=== PATIENT | female | born 1965 | race Caucasian/White ===

== ENCOUNTER 2017-12-22 10:46 | Observation (INO) | payer BC ==
--- NOTE | 2017-12-22 11:51 | RAD ---
PORTABLE UPRIGHT FRONTAL CHEST RADIOGRAPH: Date: 12-22-17 Comparison: 11-21-16 History: Nausea, chills, and recurring pain. FINDINGS: Midline sternotomy wires and mediastinal clips are present. No pneumothorax is noted. There is a dual -lead transvenous AICD. No lobar consolidation or alveolar edema. IMPRESSION: No acute findings. POS: [facility]
[2017-12-22 11:53] LABS: #Basophils 0.1 thou/uL (0.0-0.2); #Eosinphils 0.3 thou/uL (0.0-0.7); #Lymphocytes 2.2 thou/uL (1.20-3.40); #Monocytes 0.5 thou/uL (0.11-0.59); #Neutrophils 6.3 thou/uL (1.40-6.50); %Basophils 0.9 % (0.0-1.0); %Eosinophils 3.6 % (0.0-10.0); %Monocytes 5.1 % (0.0-10.0); %Neutrophils 67.4 % (42.0-75.0); Hemoglobin 14.7 g/dL (12.0-16.0); Mean Corpuscular HGB CONC 32.8 g/dL (32.0-36.0); Mean Corpuscular Hemoglobin 30.4 pg (27.0-31.0); Mean Corpuscular Volume 92.6 fl (81.0-99.0); Mean Platelet Volume 7.8 fL (7.4-10.4); Platelet Count 289 thou/uL (130-400); Red Blood Cell (RBC) Count 4.86 mill/uL (4.20-5.40); White Blood Cell (WBC) Count 9.4 thou/uL (4.8-10.8)
[2017-12-22 12:02] LABS: ALT (SGPT) 23 U/L (8-55); AST (SGOT) 25 U/L (5-34); Albumin 4.4 g/dL (3.5-5.0); Alkaline Phosphatase 98 U/L (40-150); Anion Gap 16 mmol/L (10-20); BUN (Urea Nitrogen) 12 mg/dL (9.8-20.1); Bilirubin, Total 0.6 mg/dL (0.2-1.2); CK (CPK) 91 U/L (29-168); Calc. Creatinine Clearance 0 mL/min (70-130); Calcium 10.1 mg/dL (7.8-10.44); Carbon Dioxide 26 mmol/L (22-29); Chloride 104 mmol/L (98-107); Estimated GFR-MDRD 70; Globulin 3.3 g/dL (2.4-3.5); Glucose 181 mg/dL (70-105); Lipase 8 U/L (8-78); Potassium 4.4 mmol/L (3.5-5.1); Protein, Total 7.7 g/dL (6.0-8.3); Sodium 142 mmol/L (136-145)
[2017-12-22 12:05] LABS: CKMB 1.7 ng/mL (0-6.6); Troponin I 0.028 ng/mL (< 0.028)
[2017-12-22] MEDS ORDERED: Ondansetron HCl/PF 4 MG/2 ML Vial ONE (12:43)
[2017-12-22 13:15] LABS: Bilirubin Small (Negative); Blood, Urine Trace (Negative); Clarity Clear (Clear); Glucose, Urine (Dipstick) Negative (Negative); Leukocyte Small (Negative); Nitrite Negative (Negative); Protein, Urine (Dipstick) 30 mg/dL (Neg-Trace); Specific Gravity, Urine 1.025 (1.005-1.030); Urobilinogen 0.2 mg/dL (0.2-1.0); pH, Urine 5.5 (5.0-9.0)
[2017-12-22 13:26] LABS: RBC/HPF 0-3 HPF (0-3)
[2017-12-22 13:27] LABS: Bacteria/HPF 1+ HPF (None Seen)
[2017-12-22] MEDS ORDERED: Ondansetron ODT 4 MG TAB SL PRN (15:48)
[2017-12-22] MEDS ORDERED: Ondansetron HCl/PF 4 MG/2 ML Vial IVP PRN ×2 (15:48→16:56)
[2017-12-22 16:08] VITALS: BMI 43.4
[2017-12-22 16:45] LABS: Troponin I 0.015 ng/mL (< 0.028)
[2017-12-22] MEDS ORDERED: Dextrose 50% Abboject 50 ML SYRINGE SLOW IVP PRN (16:56)
[2017-12-22] MEDS ORDERED: Acetaminophen 325 MG TAB PO PRN (16:56)
[2017-12-22] MEDS ORDERED: Nitroglycerin 0.4 MG TAB (25 Tab Bottle) PO PRN (16:56)
[2017-12-22] MEDS ORDERED: Dextrose 5% in Water 1,000 ML IV PRN (16:56)
[2017-12-22] MEDS ORDERED: Acetaminophen/Codeine 30-300mg Tablet PO PRN (16:56)
[2017-12-22] MEDS ORDERED: Lorazepam 0.5 MG TAB PO PRN (16:56)
[2017-12-22] MEDS ORDERED: Mag-Al 1200 mg/1200 mg/30 ML UDCUP PO PRN (16:56)
[2017-12-22] MEDS ORDERED: HumaLOG 300 UNITS/3 ML VIAL SC PRN ×2 (16:56)
[2017-12-22] MEDS ORDERED: Ondansetron ODT 4 MG TAB PO PRN (16:56)
[2017-12-22] MEDS ORDERED: Promethazine 25 MG TAB PO PRN (19:01)
[2017-12-22 19:37] LABS: Troponin I 0.014 ng/mL (< 0.028)
[2017-12-22] MEDS: Famotidine 20 MG TAB PO SCH (20:53)
[2017-12-22] MEDS: Carvedilol 25 MG TAB PO SCH (20:53)
--- NOTE | 2017-12-22 20:56 | HP ---
PRIMARY CARE PHYSICIAN: Dr. Eller. NAIL MACHINE OPERATOR: Dr. Rosas. CHIEF COMPLAINT: Chest pain and nausea, vomiting, and diarrhea. HISTORY OF PRESENT ILLNESS: Ms. Caicedo is a very pleasant 52-year-old female. She has a history of coronary artery disease and she has had coronary artery bypass grafting back in 2002. She says unfor tunately the bypass vessels had failed, but she did not have a redo surgery. Since then she has been having angina off and on for years, this has been treated with maximal medical management with beta blockers, aspirin, nitrates and Ranexa. She also has chronic systolic heart failure with her last ej ection fraction known as being approximately 20%. She says this was a few years ago and she has been treated with Entresto for this. She says that she was in her usual state of health until this morni ng. She says that she was in bed. She had just woke up and before she had gotten out of bed, she st arted having pain in the center of her chest. She says this is normally where she experiences angina . She says she cannot really describe the characteristics of it. She says it is not necessarily a s harp or dull pain, it is more like a tightening in her chest. She rates it at about 4/5. She gave h erself 1 spray of nitroglycerin and it went away. When asked why she came to the hospital, she says she was concerned because it was also in conjunction with nausea and vomiting. She says that yesterd ay, she started getting nauseated off and on and she vomited 3 times throughout the night. She also says that the Thursday prior to admission, she had another episode of the chest pain and she gave herse lf 2 sprays of the nitroglycerin instead of 1 in order for the pain to go away. She says because of all of these things in conjunction, this is why she came to the hospital for evaluation. She says th at she has not been short of breath. She has not felt dizzy or lightheaded. The pain is nonradiatin g and again it usually goes away with 1 spray of the nitroglycerin and currently, she is not having c hest pain. She has been placed in observation for further evaluation. REVIEW OF SYSTEMS: Constitutional: She has had some chills and fever, no night sweats, no weight lo ss. HEENT: She has had a headache that she attributes this to nitroglycerin. No sore throat, rhino rrhea, neck pain or adenopathy. Pulmonary: She says she has occasional cough that she believes this is due to fluid, no hemoptysis. Cardiovascular: As the history of present illness. She also denie s any PND, no orthopnea. No lower extremity edema, no palpitations. Gastrointestinal: She has had some nausea and vomiting, no hematemesis. She has also had diarrhea, no mention of any blood in the stools. Genitourinary: No urinary frequency, hematuria or hesitancy. Musculoskeletal: No muscle p ains, weakness or joint pains. Neurologic: No focal weakness, numbness, no seizures. Psychiatric: No symptoms of anxiety or depression. PAST MEDICAL HISTORY: Significant for coronary artery disease, diabetes mellitus, and hyperlipidemia . She says that she is not hypertensive. PAST SURGICAL HISTORY: She has had the bypass surgery in 2002, failed graft. She has had an AICD pl aced, hysterectomy, cholecystectomy, and meniscal tear surgery. ALLERGIES: LATEX. She says she is intolerant to MORPHINE, AND DEMEROL which makes her sick. FAMILY HISTORY: Significant for diabetes mellitus in both parents as well as coronary artery disease in both parents. SOCIAL HISTORY: She is a nonsmoker, nondrinker. She is . She has two children. She has not designated as the surrogate decision maker, but of course her would do that. She would like to be a full code. CURRENT MEDICATIONS: Include carvedilol 25 mg twice a day, Entresto 49/51 twice a day, glipizide 2.5 mg daily, Plavix 75 mg daily, Zetia 10 mg q.p.m., Ranexa 1000 mg q.p.m., Crestor 40 mg q.p.m., venla faxine 150 mg daily, Nitrostat p.r.n., Zofran 8 mg t.i.d., aspirin 325 mg daily, Prilosec 20 mg daily , and Tylenol #3 one to two tablets as needed for pain. PHYSICAL EXAMINATION: GENERAL: She is well-developed, well-nourished. She appears to be in no acute distress. VITAL SIGNS: Blood pressure was 115/57, heart rate 87, respiratory rate of 15, temperature is 99.1, O2 sat was 92% on room air. HEENT: Pupils are equal, round, and reactive. NECK: There is no adenopathy, no bruits. LUNGS: Clear to auscultation with no wheezing, no rales. CARDIOVASCULAR: Heart sounds are a bit distant. She had a normal S1, S2. I did not appreciate an S 3 or S4. No murmurs, clicks or rubs. ABDOMEN: Obese, it is soft, nontender, nondistended. Positive for bowel sounds. No rebound, no gua rding. EXTREMITIES: There is no edema. SKIN: No skin lesions, no rash. NEUROLOGIC: The exam is nonfocal. LABORATORY AND X-RAY FINDINGS: Her EKG was sinus rhythm, the rate was in the 70s. She had some T-wa ve inversions in lead I and aVL with also she had some baseline artifact. Her white blood cell count was 9.4, hemoglobin 14.7, hematocrit is 45, platelet count is 289. Sodium 142, potassium 4.4, chlor angelica 104, CO2 is 26, BUN 12, creatinine 0.86, glucose is 181. Urinalysis, she has got trace blood, ni trite negative, 4-6 wbc's, but she had 11-20 squamous cells, 1+ bacteria. ASSESSMENT AND PLAN: This is a pleasant 52-year-old female that presented to the emergency room with complaints of chest pain which is similar to the pain that she has had that she relates to angina. However, the frequency of her chest pain has not significantly changed, nor the severity. Her main c oncern was that there was some nausea and diarrhea associated with it and this was what had concerned her. Her initial troponin was negative. There were no acute EKG changes. I suspect that she has s table angina likely in association with a viral gastroenteritis. She will be placed in observation g iven her complex cardiac history, we will go ahead and consult Dr. Rosas to see if he feels any ryan tional cardiac workup is necessary. She has not had a recent echo that she is aware of. Therefore, we will go ahead and order an echocardiogram to assess her ejection fraction. Continue to trend her troponins and restart her home medications. For diabetes, again restart her home medications for diabetes as well as place her on a sliding scale . She does not appear to be vomiting at this time or having any diarrhea. Therefore, we will hold o ff on any IV fluids, especially given her heart failure and just treat her symptomatically as needed.
[2017-12-22] MEDS ORDERED: Clopidogrel Bisulfate 75 MG TAB PO SCH (21:00)
[2017-12-22] MEDS ORDERED: Rosuvastatin 20 MG TAB PO SCH (21:00)
[2017-12-22] MEDS ORDERED: Venlafaxine HCl XR 150 MG CAP PO SCH (21:00)
[2017-12-22] MEDS ORDERED: Ezetimibe 10 MG TAB PO SCH (21:00)
[2017-12-22] MEDS: Sacubitril 49 MG/Valsartan 51 MG TABLET PO SCH (21:58)
[2017-12-23 05:47] LABS: #Basophils 0.1 thou/uL (0.0-0.2); #Eosinphils 0.3 thou/uL (0.0-0.7); #Lymphocytes 2.5 thou/uL (1.20-3.40); #Monocytes 0.6 thou/uL (0.11-0.59); #Neutrophils 4.2 thou/uL (1.40-6.50); %Basophils 0.7 % (0.0-1.0); %Eosinophils 4.1 % (0.0-10.0); %Lymphocytes 32.1 % (21.0-51.0); %Monocytes 7.8 % (0.0-10.0); %Neutrophils 55.3 % (42.0-75.0); Hemoglobin 13.5 g/dL (12.0-16.0); Mean Corpuscular HGB CONC 32.9 g/dL (32.0-36.0); Mean Corpuscular Hemoglobin 31.8 pg (27.0-31.0); Mean Corpuscular Volume 96.5 fl (81.0-99.0); Platelet Count 242 thou/uL (130-400); RBC Distribution Width 13.2 % (11.5-14.5); Red Blood Cell (RBC) Count 4.25 mill/uL (4.20-5.40); White Blood Cell (WBC) Count 7.6 thou/uL (4.8-10.8)
[2017-12-23 06:01] LABS: Anion Gap 11 mmol/L (10-20); BUN (Urea Nitrogen) 12 mg/dL (9.8-20.1); Calc. Creatinine Clearance 131 mL/min (70-130); Calcium 9.4 mg/dL (7.8-10.44); Carbon Dioxide 28 mmol/L (22-29); Cardiac Risk 4.1 (Less than 4.5); Chloride 104 mmol/L (98-107); Cholesterol 145 mg/dl (< 200 Desired); Estimated GFR-MDRD 71; Glucose 161 mg/dL (70-105); HDL Cholesterol 35 mg/dL (>60 Neg Risk); LDL Cholesterol, Calculated 62 mg/dL; Potassium 3.8 mmol/L (3.5-5.1); Sodium 139 mmol/L (136-145); Triglycerides 242 mg/dL (Less than 150)
[2017-12-23] MEDS ORDERED: Enoxaparin Sodium 40 MG/0.4 ML SYRINGE SC SCH (09:00)
[2017-12-23] MEDS ORDERED: Aspirin 325 mg Enteric Coated Tablet PO SCH (09:00)
[2017-12-23] MEDS: Sacubitril 49 MG/Valsartan 51 MG TABLET PO SCH (09:57)
[2017-12-23] MEDS: Famotidine 20 MG TAB PO SCH (09:58)
[2017-12-23] MEDS: Carvedilol 25 MG TAB PO SCH (09:58)
--- NOTE | 2017-12-23 12:05 | PDOC.PN ---
- Subjective Encounter Start Date: 12/23/17 Encounter Start Time: 12:04 Ms. Caicedo was seen today in follow-up. She is feeling better. She says the nausea has improved, and she has not had any vomiting. She does not have diarrhea either and only loose stools. - Objective Resuscitation Status: Resuscitation Status FULL:Full Resuscitation MAR Reviewed: Yes Vital Signs & Weight: Vital Signs (12 hours) Temp Pulse Resp BP BP Pulse Ox 12/23/17 08:22 97.7 F 87 16 116/60 93 L 12/23/17 04:30 98.4 F 73 16 99/50 L 95 12/23/17 00:17 86 16 99/55 L 94 L Weight Weight 231 lb 1.6 oz I&O: 12/22/17 12/23/17 12/24/17 06:59 06:59 06:59 Intake Total 720 Balance 720 Result Diagrams: 12/23/17 05:10 12/23/17 05:10 Additional Labs: Accuchecks 12/23/17 12/22/17 11:33 22:35 POC Glucose 215 H 191 H Phys Exam - Physical Examination HEENT: PERRLA Respiratory: no wheezing, no rales, no rhonchi Cardiovascular: RRR, no significant murmur, no rub Gastrointestinal: soft, non-tender, positive bowel sounds Musculoskeletal: no edema Dx/Plan (1) Gastroenteritis and colitis, viral Code(s): A08.4 - VIRAL INTESTINAL INFECTION, UNSPECIFIED Status: Acute (2) CAD (coronary artery disease) Code(s): I25.10 - ATHSCL HEART DISEASE OF [place] CORONARY ARTERY W/O ANG PCTRS Status: Acute (3) Diabetes Code(s): E11.9 - TYPE 2 DIABETES MELLITUS WITHOUT COMPLICATIONS Status: Acute (4) HTN (hypertension) Code(s): I10 - ESSENTIAL (PRIMARY) HYPERTENSION Status: Acute - Plan * Gastroenteritis- resolving * CAD- she has stable angina * Chronic systolic heart failure- compensated- Echo is pending- the results can be followed-up as an outpatient * Likely home this afternoon.
[2017-12-23] MEDS ORDERED: Sulfameth/Trimethoprim DS 800-160mg TAB PO SCH (12:15)
--- NOTE | 2017-12-23 12:50 | DIS ---
DATE OF ADMISSION: 12/22/2017 DATE OF DISCHARGE: 12/23/2017 PRIMARY CARE PHYSICIAN: Jerod Eller M.D. DISCHARGE DISPOSITION: Home. PRIMARY DISCHARGE DIAGNOSES: 1. Gastroenteritis, probable viral. 2. Stable angina. 3. Coronary artery disease. 4. Chronic systolic heart failure with her last ejection fraction being 20%-25%. 5. History of automated implantable cardioverter-defibrillator placement. 6. Diabetes mellitus. 7. Hyperlipidemia. DISCHARGE MEDICATIONS: These are the same as that on admission and include venlafaxine 150 mg daily, Entresto 1 tablet twice a day and that is 49/51, Crestor 40 mg daily, Ranexa 1000 mg daily, Zofran 8 mg t.i.d. as needed, omeprazole 20 mg daily, nitroglycerin spray every 5 minutes as needed, glipizid e extended release 2.5 mg daily, Zetia 10 mg daily, Plavix 75 mg daily, Carvedilol 25 mg twice a day, aspirin 325 mg daily, and Tylenol #3 as needed. PROCEDURES DONE DURING ADMISSION: The patient had an echocardiogram, which was pending at the time o f discharge. CODE STATUS: FULL CODE. ALLERGIES: LATEX, ADHESIVEs and MEPERIDINE. HOSPITAL COURSE: Ms. Caicedo is a very pleasant 52-year-old female who presented to the ER with compl aints of chest pain along with nausea, vomiting, and diarrhea. Given her complicated cardiac history , she was concerned that she could have an acute coronary syndrome. She was placed in observation. Cardiac enzymes were obtained, which were essentially negative and her symptoms of nausea, vomiting, and diarrhea actually abated by the following day. She was able to tolerate a solid diet and likely will be discharged home later on this afternoon. She can follow up with echocardiogram results with Dr. Rosas as had planned to get an outpatient echo in the coming weeks and also follow up with her [facility] physician in 1-2 weeks as well.
--- NOTE | 2017-12-23 15:39 | CON ---
DATE OF CONSULTATION: 12/23/2017 REASON FOR CONSULTATION: Chest pain. HISTORY OF PRESENT ILLNESS: Ms. Caicedo is a very pleasant 52-year-old woman with a history of extensive coronary disease as will be outlined below, who had episodes of chest pain prompting this admission. Ms. Caicedo has a long history of heart disease. She had a myocardial infarction in 2001. She underwent emergency balloon angioplasty and stent implantation and she had restenosis and ultimately underwent 3-vessel bypass and subsequently underwent stent implantations. The most recent catheterization revealed that the circumflex and right coronary are occluded as are the grafts in these distributions, but the internal mammary is patent and supplies the entire heart. She did have nausea and vomiting recently. REVIEW OF SYSTEMS: Constitutional: No significant weight gain or loss. Vision : No changes. Hearing: No changes. Pulmonary: No cough or wheezing. Gastrointestinal: No nausea, vomiting, diarrhea. Skin: No rashes. Neurologic : No unilateral weakness or numbness. Psychiatric: No unusual depression or anxiety. PAST SURGICAL HISTORY: Previous defibrillator. MEDICATIONS: 1. Carvedilol. 2. Entresto. 3. Plavix. 4. Aspirin. 5. Zetia. 6. Ranexa. 7. Crestor. 8. Repatha. PHYSICAL EXAMINATION: GENERAL: This is a pleasant 52-year-old woman. VITAL SIGNS: 5 feet 1 inches tall, 231 pounds. HEENT: Eyes: Sclerae nonicteric. Mouth: Mucous membranes moist. NECK: Supple, no lymphadenopathy. LUNGS: Clear, no wheezing, rales, or rhonchi. CARDIAC: Normal S1, normal S2. There is no murmur, rub, or gallop. ABDOMEN: Soft, nontender, no hepatosplenomegaly. EXTREMITIES: Warm, dry, no clubbing or cyanosis. There is no edema. LABORATORY AND X-RAY FINDINGS: Cardiac enzymes are negative. Cholesterol 145, LDL 62. Echocardiogram, ejection fraction 20%-25% as before. ASSESSMENT: 1. Episodes of angina. 2. Nausea and vomiting, resolved. 3. Low-grade fever, resolved. PLAN: We will have AICD interrogated. If that is normal, really nothing further from a cardiac standpoint. ADDENDUM OPTIVOL MILDLY ELEVATED, IV FUROSEMIDE GIVEN X 1 MTDD
[2017-12-23] MEDS ORDERED: Potassium Chloride 20 MEQ TAB PO SCH (15:45)
[2017-12-23] MEDS ORDERED: Furosemide 20 MG/2 ML VIAL SLOW IVP SCH (15:45)
[2017-12-23 15:57] VITALS: BP 119/55; TEMP 98.4
== END 2017-12-23 19:36 | disposition home or self-care (01) ==
LOC: SCSER 10:46 → 2SW 12:55
PROVIDERS: ADMIT Internal Medicine; ATTEND Internal Medicine
DX: K52.9 Noninfective gastroenteritis and colitis, unspecified (principal); I25.118 Atherosclerotic heart disease of native coronary artery with other forms of angina pectoris; E78.5 Hyperlipidemia, unspecified; I50.22 Chronic systolic (congestive) heart failure; I25.2 Old myocardial infarction; E11.9 Type 2 diabetes mellitus without complications; Z91.040 Latex allergy status; Z91.048 Other nonmedicinal substance allergy status; Z88.5 Allergy status to narcotic agent; Z88.8 Allergy status to other drugs, medicaments and biological substances; Z79.899 Other long term (current) drug therapy; Z95.1 Presence of aortocoronary bypass graft; Z95.810 Presence of automatic (implantable) cardiac defibrillator; Z90.710 Acquired absence of both cervix and uterus; Z90.49 Acquired absence of other specified parts of digestive tract; Z98.890 Other specified postprocedural states
CPT/HCPCS: 36415; 36416; 71045; 80048; 80053; 80061; 81003; 81015; 82553; 83690; 84484; 85025; 93005; 93306; 96372; 96374; 96375; 96376; G0378; J1650; J1940; J2405

== ENCOUNTER 2018-02-23 16:52 | Observation (INO) | payer BC ==
[2018-02-23 17:44] LABS: Band 2 % (5-11); Eosinophils 4 % (0-10); Lymphocytes 29 % (21-51); MDiff Complete? YES; Mean Corpuscular HGB CONC 32.5 g/dL (32.0-36.0); Mean Corpuscular Hemoglobin 29.6 pg (27.0-31.0); Mean Corpuscular Volume 91.2 fl (81.0-99.0); Mean Platelet Volume 9.9 fL (7.4-10.4); Monocytes 6 % (0-10); Neutrophil 59 % (42-75); PLT Morphology Comment Appears Adequate; Platelet Count 277 thou/uL (130-400); RBC Distribution Width 13.4 % (11.5-14.5); Red Blood Cell (RBC) Count 4.74 mill/uL (4.20-5.40); White Blood Cell (WBC) Count 9.3 thou/uL (4.8-10.8)
[2018-02-23 17:54] LABS: ALT (SGPT) 16 U/L (8-55); AST (SGOT) 15 U/L (5-34); Albumin 3.9 g/dL (3.5-5.0); Alkaline Phosphatase 120 U/L (40-150); Anion Gap 14 mmol/L (10-20); BUN (Urea Nitrogen) 13 mg/dL (9.8-20.1); Bilirubin, Total 0.5 mg/dL (0.2-1.2); CK (CPK) 66 U/L (29-168); Calc. Creatinine Clearance 0 mL/min (70-130); Carbon Dioxide 21 mmol/L (22-29); Chloride 105 mmol/L (98-107); Estimated GFR-MDRD 62; Globulin 2.8 g/dL (2.4-3.5); Glucose 264 mg/dL (70-105); Potassium 3.9 mmol/L (3.5-5.1); Protein, Total 6.7 g/dL (6.0-8.3); Sodium 136 mmol/L (136-145)
[2018-02-23 17:55] LABS: Troponin I Less than 0.010 ng/mL (< 0.028)
[2018-02-23] MEDS ORDERED: Ondansetron HCl/PF 4 MG/2 ML Vial ONE (18:02)
[2018-02-23] MEDS ORDERED: Morphine 10 MG/ML VIAL ONE (18:02)
--- NOTE | 2018-02-23 18:06 | RAD ---
UPRIGHT PORTABLE CHEST ONE VIEW: 02/23/18 HISTORY: 53-year-old female with history of chest pain with pain radiating into her left axilla. COMPARISON: 12/22/17. Borderline cardiomegaly with postop midline sternotomy and left ICD. Stable mild vascular congestion. No confluent pneumonia, overt edema or pleural effusion. IMPRESSION: Stable chest with some borderline vascular congestion. No pneumonia or other new process. POS: [facility]
[2018-02-23 20:00] VITALS: BMI 42.7
[2018-02-23] MEDS ORDERED: Morphine 2 MG/ML SYRINGE SLOW IVP PRN (20:22)
[2018-02-23] MEDS ORDERED: Acetaminophen 325 MG TAB PO PRN ×2 (20:23→21:32)
[2018-02-23] MEDS ORDERED: Ondansetron ODT 4 MG TAB SL PRN (20:23)
[2018-02-23] MEDS ORDERED: Ondansetron HCl/PF 4 MG/2 ML Vial IVP PRN ×2 (20:23→21:32)
[2018-02-23 21:22] LABS: Troponin I Less than 0.010 ng/mL (< 0.028)
[2018-02-23] MEDS ORDERED: HumaLOG 300 UNITS/3 ML VIAL SC PRN (21:32)
[2018-02-23] MEDS ORDERED: Nitroglycerin 4.9 GM Bottle SL PRN (21:32)
[2018-02-23] MEDS ORDERED: Dextrose 5% in Water 1,000 ML IV PRN (21:32)
[2018-02-23] MEDS ORDERED: Dextrose 50% Abboject 50 ML SYRINGE SLOW IVP PRN (21:32)
[2018-02-23] MEDS ORDERED: HYDROcodone/Acetaminophen 5/325 mg Tablet PO PRN (21:32)
[2018-02-23] MEDS ORDERED: Ondansetron ODT 4 MG TAB PO PRN (21:32)
[2018-02-23] MEDS ORDERED: Enoxaparin Sodium 40 MG/0.4 ML SYRINGE SC SCH (21:45)
[2018-02-23] MEDS ORDERED: Venlafaxine HCl XR 150 MG CAP PO SCH (22:00)
[2018-02-23] MEDS ORDERED: Ezetimibe 10 MG TAB PO SCH (22:00)
[2018-02-23] MEDS ORDERED: Rosuvastatin 20 MG TAB PO SCH (22:00)
[2018-02-23] MEDS ORDERED: Clopidogrel Bisulfate 75 MG TAB PO SCH (22:00)
[2018-02-23] MEDS ORDERED: Sacubitril 49 MG/Valsartan 51 MG TABLET PO SCH (22:00)
[2018-02-23] MEDS ORDERED: Carvedilol 25 MG TAB PO SCH (22:15)
[2018-02-23 23:59] LABS: Troponin I 0.018 ng/mL (< 0.028)
[2018-02-24 06:13] LABS: #Basophils 0.1 thou/uL (0.0-0.2); #Eosinphils 0.2 thou/uL (0.0-0.7); #Lymphocytes 2.6 thou/uL (1.20-3.40); #Monocytes 0.5 thou/uL (0.11-0.59); #Neutrophils 4.2 thou/uL (1.40-6.50); %Basophils 1.3 % (0.0-1.0); %Eosinophils 2.8 % (0.0-10.0); %Lymphocytes 34.5 % (21.0-51.0); %Neutrophils 54.4 % (42.0-75.0); Hemoglobin 13.5 g/dL (12.0-16.0); Mean Corpuscular HGB CONC 34.1 g/dL (32.0-36.0); Mean Corpuscular Hemoglobin 31.2 pg (27.0-31.0); Mean Corpuscular Volume 91.6 fl (81.0-99.0); Mean Platelet Volume 7.9 fL (7.4-10.4); Platelet Count 234 thou/uL (130-400); RBC Distribution Width 12.9 % (11.5-14.5); White Blood Cell (WBC) Count 7.6 thou/uL (4.8-10.8)
[2018-02-24 06:22] LABS: Anion Gap 14 mmol/L (10-20); BUN (Urea Nitrogen) 13 mg/dL (9.8-20.1); Calc. Creatinine Clearance 109 mL/min (70-130); Calcium 8.8 mg/dL (7.8-10.44); Carbon Dioxide 23 mmol/L (22-29); Chloride 105 mmol/L (98-107); Estimated GFR-MDRD 60; Glucose 184 mg/dL (70-105); Potassium 4.3 mmol/L (3.5-5.1); Sodium 138 mmol/L (136-145)
[2018-02-24 06:28] LABS: Troponin I Less than 0.010 ng/mL (< 0.028)
--- NOTE | 2018-02-24 08:39 | HP ---
PRIMARY CARE PHYSICIAN: Dr. Eller. PRIMARY NEUROSURGICAL NURSE: Dr. Milan Rosas. DATE OF ADMISSION: 02/23/2018 TIME OF SERVICE: 2129. CHIEF COMPLAINT: Chest pain. HISTORY OF PRESENT ILLNESS: Ms. Caicedo is a 53-year-old white female well known to us from multiple previous admissions. She has history of ischemic cardiomyopathy, horrible multivessel coronary arter y disease, status post bypass surgery in 2002 three vessels. She has had a PTCA with stents, multipl e times. Her last catheterization, I think in 2013 showed all of her grafts occluded. The only cochran nt vessel was her GASCA that is basically feeding her entire heart. She has an EF of 20%-25% with inf erior and posterior wall akinesis based on her echocardiogram just done, 2 months ago. She came to the emergency department for evaluation today after the acute onset of sharp chest pain a round 14:45 today. It normally stays there, she takes her nitroglycerin spray and it goes away. Thi s time, however, it radiated to her left axilla, which was worrisome for. She came to the emergency department for evaluation. Labs were normal. Cardiac biomarkers were negative with undetectable tro ponin and CK-MB of only 1.0. She was subsequently placed under service for observation. She has no other cardiac complaints. The pain finally went away with some morphine. She is having n o pain at present. She denies any nausea or vomiting at present, but had nausea when it first starte d. She has no diarrhea, constipation. No fevers or chills. She has had no cough or sputum producti on. PAST MEDICAL HISTORY: 1. Diabetes mellitus, type 2, non-insulin dependent. 2. Hyperlipidemia, primary hypercholesterolemia. 3. Coronary artery disease with AK in the past. 4. Ischemic cardiomyopathy. 5. Chronic systolic congestive heart failure. 6. Depression. 7. Obesity. PAST SURGICAL HISTORY: 1. PTCA with stents around 6. 2. AICD placement. 3. Cholecystectomy. 4. Hysterectomy. 5. Three-vessel CABG in 2002. HOME MEDICATIONS: 1. Repatha 140 mg subcutaneous every 2 weeks due on Thursday or Thursday this week. 2. Plavix 75 mg daily. 3. Coreg 25 mg p.o. b.i.d. 4. Aspirin 325 mg daily. 5. Omeprazole 20 mg daily. 6. Nitroglycerin spray as needed. 7. Zetia 10 mg p.o. q.p.m. 8. Glipizide ER 2.5 mg p.o. q.p.m. 9. Effexor XR 150 mg p.o. q.p.m. 10. Entresto 49/51 one tablet p.o. b.i.d. 11. Crestor 40 mg p.o. q.p.m. 12. Ranexa 1000 mg q.p.m. ALLERGIES: LATEX, ADHESIVES, and DEMEROL. FAMILY HISTORY: Negative for clotting or bleeding disorder. No immune dysfunction. SOCIAL HISTORY: Negative for habits x3. REVIEW OF SYSTEMS: A 10-point review of systems was performed and is negative for all systems except as stated as per HPI. PHYSICAL EXAMINATION: VITAL SIGNS: Temperature 98.6, pulse 77, blood pressure 120/74, respiratory rate 22, satting 93% on room air. Her current heart rate is 76. GENERAL: She is awake. She is alert. She is oriented x3. She is a well-developed, well-nourished, obese white female, appears to be in zero distress. HEENT: She is normocephalic and atraumatic. Her pupils equal, round, react to light bilaterally, mu cous members are moist. She has no visible lesions. No thrush. NECK: Supple. She had no lymphadenopathy, no JVD, no thyromegaly. She has normal carotid upstrokes . I do not appreciate bruits. CHEST: Lungs are clear to auscultation bilaterally. She had good air movement. Symmetrical chest e xcursion. No wheezes, no rales, no rhonchi. CARDIOVASCULAR: She has normal S1 and S2. She has no S3 or S4. Heart tones are slightly distant. She has no audible murmurs. ABDOMEN: Soft. It is obese, is nontender. I cannot palpate internal organs. She has no rebound, r igidity, or guarding. There is normoactive bowel sounds present in all 4 quadrants. EXTREMITIES: No cyanosis, no clubbing, no edema with 1+ dorsalis pedis and posterior tibial pulses b ilaterally. SKIN: Warm, moist, well perfused. She has no rashes or lesions. MUSCULOSKELETAL: Normal to inspection. Large joints are uninflamed. There is no palpable effusions . NEUROLOGIC: Cranial nerves II-XII are grossly intact. She has normal speech pattern, 5/5 strength, no focal deficits. LABORATORY DATA: Sodium 136, potassium 3.9, chloride 105, bicarb 21, BUN 13, creatinine 0.95, glucos e 264, and calcium 9.0. Liver function within normal limits. CBC showed white count of 9.3, hemoglo bin 14.0, hematocrit of 43.2, and platelet count is 277,000. She has 59% granulocytes, 2% bands, and 29% lymphocytes. Her CK-MB was normal at 1.0. Troponin I was undetectable less than 0.010. EKG showed paced rhythm. ASSESSMENT AND PLAN: 1. Chest pain in the patient with known severe coronary artery disease. I do not think, there is an ything that can be done, as she has really only has a left internal mammary artery to supply entire h eart based on Dr. Rosas's last note. She is on aggressive management of hyperlipidemia with Crestor , Zetia, and Repatha. At this point, we will place her on observation. She is on the Ranexa, which will continue and give a dose now and we will get serial cardiac biomarkers to rule out. We will not e Dr. Rosas of admission in the mornings, so he combines and reviewed the chart. 2. Diabetes mellitus, type 2, we will continue her glipizide ER at bedtime placed on a diabetic diet and we will get sliding-scale insulin ordered. 3. Hyperlipidemia as above. 4. Depression on Effexor. 5. Hypertension. She is on Coreg, Ranexa, Entresto. We will continue these. We will monitor blood pressure closely. 6. Gastroesophageal reflux disease on omeprazole. We will continue.
[2018-02-24] MEDS: Carvedilol 25 MG TAB PO SCH ×2 (08:56→17:27)
[2018-02-24] MEDS ORDERED: Aspirin 325 mg Enteric Coated Tablet PO SCH (09:00)
[2018-02-24] MEDS ORDERED: Sacubitril 49 MG/Valsartan 51 MG TABLET PO SCH (09:00)
[2018-02-24 15:58] VITALS: BP 93/54; TEMP 98.4
[2018-02-24] MEDS ORDERED: Carvedilol 25 MG TAB PO SCH (17:27)
[2018-02-24] MEDS ORDERED: Ezetimibe 10 MG TAB PO SCH (21:00)
[2018-02-24] MEDS ORDERED: Venlafaxine HCl XR 150 MG CAP PO SCH (21:00)
[2018-02-24] MEDS ORDERED: Rosuvastatin 20 MG TAB PO SCH (21:00)
[2018-02-24] MEDS ORDERED: Clopidogrel Bisulfate 75 MG TAB PO SCH (21:00)
--- NOTE | 2018-02-24 23:17 | CON ---
DATE OF CONSULTATION: 02/24/2018 REASON FOR CONSULTATION: Chest pain. HISTORY OF PRESENT ILLNESS: Ms. Caicedo is a 53-year-old woman. She has a long history of coronary a rtery disease. Please see previous notes. The patient has had myocardial infarction, subsequently u nderwent stent implantation emergently and later had bypass surgery. Multiple percutaneous intervent ions were done as of the most recent catheterization she has occluded zuni coronary circulation wit h a patent internal mammary artery graft with the other vein grafts are occluded. Medical therapy is the only option. The patient had an episode of chest pain yesterday which was very slow to resolve, ultimately went to the emergency room. MEDICATIONS AT HOME: 1. Carvedilol 25 mg twice a day. 2. Entresto 49/51 twice a day. 3. Aspirin. 4. Clopidogrel. 5. Ranexa. 6. Rosuvastatin. 7. Repatha. 8. Crestor. ALLERGIES: LATEX, ADHESIVES, MEPERIDINE. REVIEW OF SYSTEMS: Constitutional: No significant weight gain or loss. Vision: No changes. Heari ng: No changes. Pulmonary: No cough or wheezing. Gastrointestinal: No nausea, vomiting, diarrhea . Skin: No rashes. Neurologic: No unilateral weakness or numbness. Psychiatric: No unusual depr ession or anxiety. Hematologic: No unusual bruising. Genitourinary: No burning with urination. PHYSICAL EXAMINATION: GENERAL: The pleasant patient in no distress. VITAL SIGNS: Blood pressure is 88 systolic, pulse 76. EYES: Sclerae nonicteric. MOUTH: Mucous membranes moist. NECK: Supple, no lymphadenopathy. LUNGS: Clear, no wheezing, rales or rhonchi. ABDOMEN: Soft, nontender. EXTREMITIES: No clubbing or cyanosis. There is no edema. SKIN: Warm and dry. PSYCHIATRIC: Mood and affect normal. NEUROLOGIC: Grossly normal. LABORATORY AND X-RAY FINDINGS: Troponin levels were negative. EKG shows no acute changes. Defibril lator was interrogated. BNP was normal. No significant arrhythmias. Normal function. ASSESSMENT: 1. The episode of anginal chest pain of unknown etiology, possibly related to? low blood pressure. 2. Congestive heart failure, stable. 3. Coronary artery disease, medical therapy the only option. PLAN: 1. Okay with me to be released home. 2. Reduce carvedilol to 12.5 mg twice a day. 3. No other changes in medicines.
--- NOTE | 2018-02-25 02:12 | DIS ---
DATE OF ADMISSION: 02/23/2018 DATE OF DISCHARGE: 02/24/2018 DISCHARGE DIAGNOSES: 1. Chest pain. 2. Severe coronary artery disease, inoperable. 3. Ischemic cardiomyopathy with ejection fraction of 20-25%, compensated. 4. Diabetes mellitus type 2. 5. Hyperlipidemia. 6. Hypertension, stable. CONSULTATIONS: Dr. Rosas with Cardiology Service. PERTINENT LABORATORY AND X-RAY FINDINGS: Basic metabolic profile within normal limits. Troponin I n egative x3. CBC within normal limits. Portable chest x-ray dated 02/23/2018 showed no acute cardiop ulmonary process. HOSPITAL COURSE: The patient was observed on the telemetry unit after initially presenting with recu rrent chest pain with a known history of severe coronary artery disease, status post coronary artery bypass grafting x3 vessels as well as prior PTCA with stent placements multiple times. The patient o n maximal medical management currently with recommendations to decrease Coreg to 12.5 mg b.i.d. The patient exhibited no specific evidence of acute ischemic episode or myocardial infarction. Telemetry monitoring showed sinus mechanism without acute arrhythmia or dysrhythmia. Interrogation of patient 's AICD device showed normal functioning device. Overall, patient remained clinically stable through the hospital course, tolerating regular oral intake, ambulating without assistance or difficulty and voiding appropriately. I have examined the patient at the time of discharge, discussed laboratory r esults and outpatient management and followup information. The patient verbalizes understanding and agreement and will discharge on 02/24/2018. DISCHARGE MEDICATIONS: 1. Enteric coated aspirin 325 mg 1 tab p.o. daily. 2. Coreg 12.5 mg p.o. b.i.d. 3. Plavix 75 mg p.o. at bedtime. 4. Repatha SureClick 140 mg subcutaneously every other week. 5. Zetia 10 mg p.o. at bedtime. 6. Glipizide 2.5 mg p.o. at bedtime. 7. Nitroglycerin spray 1 spray sublingually every 5 minutes p.r.n. chest pain. 8. Omeprazole 20 mg p.o. daily. 9. Ranexa 1000 mg p.o. at bedtime. 10. Crestor 40 mg p.o. at bedtime. 11. Entresto 49/51 mg 1 tab p.o. b.i.d. 12. Effexor XR 150 mg p.o. at bedtime. FOLLOWUP: The patient may follow up with her primary care provider, Dr. Jerod Eller within 7 days of discharge. The patient may also follow up with Dr. Rosas with [facility] and call his office for appointment time and date. CONDITION ON DISCHARGE: Stable. ACTIVITY: Ad nacho. DIET: Heart healthy and ADA. CODE STATUS: FULL. DISPOSITION: Home 02/24/2018.
--- NOTE | 2018-03-27 17:36 | EKG ---
Test Reason : Blood Pressure : / mmHG Vent. Rate : 082 BPM Atrial Rate : 082 BPM P-R Int : 098 ms QRS Dur : 098 ms QT Int : 390 ms P-R-T Axes : 083 077 185 degrees QTc Int : 455 ms Electronic atrial pacemaker Poor anterior R wave progression T wave abnormality, consider inferolateral ischemia Abnormal ECG Confirmed by VIKTORIA ATN ([id number]), video effects editor CARMEL ALEGRE ([id number]) on 03/27/2018 5:35:49 PM Referred By: BRITNEY Confirmed By:VIKTORIA TAN
== END 2018-02-24 19:08 | disposition home or self-care (01) ==
LOC: SCSER 16:52 → 2SW 18:30
PROVIDERS: ADMIT Emergency Medicine; ATTEND Emergency Medicine
DX: Z88.8 Allergy status to other drugs, medicaments and biological substances; Z79.899 Other long term (current) drug therapy; E11.9 Type 2 diabetes mellitus without complications; I50.22 Chronic systolic (congestive) heart failure; Z95.5 Presence of coronary angioplasty implant and graft; R07.9 Chest pain, unspecified; I25.10 Atherosclerotic heart disease of native coronary artery without angina pectoris; E66.9 Obesity, unspecified; I25.5 Ischemic cardiomyopathy; Z79.84 Long term (current) use of oral hypoglycemic drugs; K21.9 Gastro-esophageal reflux disease without esophagitis; E78.5 Hyperlipidemia, unspecified; Z95.810 Presence of automatic (implantable) cardiac defibrillator; I11.0 Hypertensive heart disease with heart failure; Z91.048 Other nonmedicinal substance allergy status; I25.2 Old myocardial infarction; Z95.1 Presence of aortocoronary bypass graft; Z91.040 Latex allergy status; Z79.82 Long term (current) use of aspirin; F32.9 Major depressive disorder, single episode, unspecified
CPT/HCPCS: 36415; 36416; 71045; 80048; 80053; 82550; 82553; 84484; 85025; 93005; 94760; 96372; 96374; 96375; G0378; J1650; J2270; J2405

== ENCOUNTER 2018-04-18 11:21 | Emergency (ER) | payer BC ==
[2018-04-18 12:59] LABS: Anion Gap 17 mmol/L (10-20); BUN (Urea Nitrogen) 17 mg/dL (9.8-20.1); Calc. Creatinine Clearance 0 mL/min (70-130); Carbon Dioxide 20 mmol/L (22-29); Chloride 103 mmol/L (98-107); Estimated GFR-MDRD 54; Glucose 373 mg/dL (70-105); Sodium 136 mmol/L (136-145)
[2018-04-18 13:00] LABS: Band 1 % (5-11); Eosinophils 2 % (0-10); Hemoglobin 16.3 g/dL (12.0-16.0); Lymphocytes 20 % (21-51); MDiff Complete? YES; Mean Corpuscular HGB CONC 33.7 g/dL (32.0-36.0); Mean Corpuscular Hemoglobin 30.7 pg (27.0-31.0); Mean Corpuscular Volume 91.1 fl (81.0-99.0); Mean Platelet Volume 8.7 fL (7.4-10.4); Monocytes 6 % (0-10); Neutrophil 67 % (42-75); PLT Morphology Comment PLT clumps seen-ADEQ; Platelet Count 293 thou/uL (130-400); RBC Distribution Width 13.2 % (11.5-14.5); Reactive Lymphocytes 4 % (0-10); Red Blood Cell (RBC) Count 5.32 mill/uL (4.20-5.40); White Blood Cell (WBC) Count 11.7 thou/uL (4.8-10.8)
--- NOTE | 2018-04-18 13:00 | RAD ---
TWO VIEWS OF THE CHEST: DATE: 04/18/18. COMPARISON: 04/30/15. HISTORY: Weakness. FINDINGS: There are stable midline sternotomy wires and mediastinal clips. Stable AICD in place. There is a c ervical rib noted on the right. There is no pneumothorax, pleural fluid, focal consolidation, or twan eolar edema. Heart and mediastinal contours appear grossly unremarkable. IMPRESSION: No acute findings - stable appearance of the chest. POS: [facility]
[2018-04-18 13:03] LABS: CKMB 1.7 ng/mL (0-6.6); Troponin I Less than 0.010 ng/mL (< 0.028)
[2018-04-18 13:47] LABS: Bilirubin Negative (Negative); Blood, Urine Negative (Negative); Clarity Cloudy (Clear); Glucose, Urine (Dipstick) >=1000 mg/dL (Negative); Leukocyte Small (Negative); Nitrite Negative (Negative); Protein, Urine (Dipstick) Negative (Neg-Trace); Urobilinogen 0.2 mg/dL (0.2-1.0); pH, Urine 5.5 (5.0-9.0)
[2018-04-18 13:49] LABS: Bacteria/HPF 1+ HPF (None Seen); RBC/HPF 0-3 HPF (0-3)
[2018-04-18 13:50] LABS: Hyaline Casts/LPF 0-3 HYALINE CAST LPF (0-3 Hyaline)
== END 2018-04-18 14:32 | disposition home or self-care (01) ==
LOC: SCSER 11:21
DX: E11.65 Type 2 diabetes mellitus with hyperglycemia (principal); N39.0 Urinary tract infection, site not specified; E78.5 Hyperlipidemia, unspecified; I25.2 Old myocardial infarction; F32.9 Major depressive disorder, single episode, unspecified; Z79.899 Other long term (current) drug therapy; Z79.82 Long term (current) use of aspirin
CPT/HCPCS: 36415; 71046; 80048; 81003; 81015; 82553; 83880; 84484; 85025; 93005

== ENCOUNTER 2018-06-14 19:49 | Emergency (ER) | payer BC ==
[2018-06-14] MEDS ORDERED: diphenhydrAMINE 50 MG/ML VIAL ONE (20:35)
[2018-06-14] MEDS ORDERED: Metoclopramide HCl 10 MG/2 ML VIAL ONE (20:35)
[2018-06-14 20:39] LABS: Band 2 % (5-11); Eosinophils 2 % (0-10); Hemoglobin 14.7 g/dL (12.0-16.0); Lymphocytes 26 % (21-51); MDiff Complete? YES; Mean Corpuscular HGB CONC 34.4 g/dL (32.0-36.0); Mean Corpuscular Hemoglobin 30.5 pg (27.0-31.0); Mean Corpuscular Volume 88.7 fL (78.0-98.0); Mean Platelet Volume 8.5 fL (7.4-10.4); Monocytes 4 % (0-10); Neutrophil 57 % (42-75); PLT Morphology Comment Appears Adequate; Platelet Count 273 thou/uL (130-400); RBC Distribution Width 13.1 % (11.5-14.5); Reactive Lymphocytes 9 % (0-10); Red Blood Cell (RBC) Count 4.83 mill/uL (4.20-5.40); White Blood Cell (WBC) Count 8.4 thou/uL (4.8-10.8)
[2018-06-14 20:46] LABS: ALT (SGPT) 22 U/L (8-55); AST (SGOT) 22 U/L (5-34); Albumin 4.3 g/dL (3.5-5.0); Alkaline Phosphatase 96 U/L (40-150); Anion Gap 17 mmol/L (10-20); BUN (Urea Nitrogen) 10 mg/dL (9.8-20.1); Bilirubin, Total 0.5 mg/dL (0.2-1.2); CK (CPK) 109 U/L (29-168); CKMB 1.8 ng/mL (0-6.6); Calc. Creatinine Clearance 0 mL/min (70-130); Calcium 9.7 mg/dL (7.8-10.44); Carbon Dioxide 21 mmol/L (22-29); Chloride 109 mmol/L (98-107); Estimated GFR-MDRD 70; Globulin 3.1 g/dL (2.4-3.5); Glucose 187 mg/dL (70-105); Lipase 12 U/L (8-78); Protein, Total 7.4 g/dL (6.0-8.3); Sodium 143 mmol/L (136-145); Troponin I Less than 0.010 ng/mL (< 0.028)
--- NOTE | 2018-06-14 23:47 | CT ---
CT HEAD WITHOUT CONTRAST: HISTORY: Nausea and dizziness x1 month. COMPARISON: None. TECHNIQUE: A noncontrast head CT is performed from the skull base to the skull vertex. FINDINGS: No parenchymal hemorrhage. No extraaxial hematoma. No midline shift. The basilar cisterns are cochran nt. Brain volume is age appropriate. Cortical karimi white matter differentiation is preserved. The ventricles and sulci are patent and symmetric. The calvarium is intact. Adequate aeration of the sinuses and mastoid air cells. IMPRESSION: No acute intracranial process. POS: [facility]
== END 2018-06-14 21:24 | disposition home or self-care (01) ==
LOC: SCSER 19:49
DX: R51 Headache (principal); E11.9 Type 2 diabetes mellitus without complications; E78.5 Hyperlipidemia, unspecified; I25.2 Old myocardial infarction; F32.9 Major depressive disorder, single episode, unspecified; Z79.899 Other long term (current) drug therapy; Z79.82 Long term (current) use of aspirin
CPT/HCPCS: 70450; 80053; 82550; 82553; 83690; 84484; 85025; 93005; 96365; 96375; J1200; J2765